=== PATIENT | male | born 2000 | race Two or more races ===

== ENCOUNTER 2024-02-04 10:50 | Emergency (ER) | payer MEDICAID ==
[~2024-02-04] VITALS: Ht 185.4 cm; Wt 83.9 kg
[2024-02-04 11:18] VITALS: BP 126/86; PULSE 80; RESP 16; TEMP 98.3; O2SAT 97
[2024-02-04] MEDS: IBUPROFEN 800 MG TAB PO ONE (11:53)
== END 2024-02-04 12:23 | disposition home or self-care (01) ==
LOC: MED 10:50
DX: S93.401A Sprain of unspecified ligament of right ankle, initial encounter (principal); R03.0 Elevated blood-pressure reading, without diagnosis of hypertension; X58.XXXA Exposure to other specified factors, initial encounter; Y92.89 Other specified places as the place of occurrence of the external cause; Y93.89 Activity, other specified; Y99.8 Other external cause status
CPT/HCPCS: 73590; 73610; 73630; 99284